=== PATIENT | female | born 1965 | race Caucasian/White ===

== ENCOUNTER 2017-12-18 10:49 | Day surgery (SDC) | payer OTHER ==
[2017-12-18] MEDS: NS 1,000 ML IV (11:15)
[2017-12-18] MEDS ORDERED: LIDOCAINE 2% INJ 100 MG/5 ML SDV (FOR ANES.) As Ordered (11:43)
[2017-12-18] MEDS ORDERED: PROPOFOL 500 MG/50 ML VIAL As Ordered (11:43)
== END 2017-12-18 12:52 | disposition home or self-care (01) ==
LOC: M OPP 10:49
DX: R19.5 Other fecal abnormalities (principal); D12.5 Benign neoplasm of sigmoid colon; K64.0 First degree hemorrhoids; R12 Heartburn; K31.89 Other diseases of stomach and duodenum; I10 Essential (primary) hypertension; E78.5 Hyperlipidemia, unspecified; K21.9 Gastro-esophageal reflux disease without esophagitis; F41.9 Anxiety disorder, unspecified; F32.9 Major depressive disorder, single episode, unspecified; E66.9 Obesity, unspecified; Z88.5 Allergy status to narcotic agent; Z79.899 Other long term (current) drug therapy
CPT/HCPCS: 45385

== ENCOUNTER 2018-08-05 10:36 | Day surgery (SDC) | payer OTHER ==
[2018-08-05] MEDS: NS 1,000 ML IV (06:45)
[~2018-08-05 10:36] MED LIST: NS 1,000 ML IV
[2018-08-05] MEDS ORDERED: LIDOCAINE 2% INJ 100 MG/5 ML SDV (FOR ANES.) As Ordered (11:06)
[2018-08-05] MEDS ORDERED: PROPOFOL 200 MG/20 ML VIAL As Ordered ×2 (11:06→11:47)
== END 2018-08-05 12:45 | disposition home or self-care (01) ==
LOC: M OPP 12:45
DX: Z86.010 Personal history of colon polyps (principal); K64.0 First degree hemorrhoids; K57.30 Diverticulosis of large intestine without perforation or abscess without bleeding; D12.3 Benign neoplasm of transverse colon; K62.1 Rectal polyp
CPT/HCPCS: 45380